=== PATIENT | male | born 1960 | race Caucasian/White ===

== ENCOUNTER 2018-10-14 14:22 | Outpatient (CLI) | payer OTHER | END 2018-10-14 14:23 | disposition critical access hospital (66) | LOC: EMS 14:22 | PROVIDERS: ATTEND Surgery | DX: M25.551 Pain in right hip (principal); W01.0XXA Fall on same level from slipping, tripping and stumbling without subsequent striking against object, initial encounter; Y92.008 Other place in unspecified non-institutional (private) residence as the place of occurrence of the external cause; Y99.0 Civilian activity done for income or pay | CPT/HCPCS: A0425; A0429 ==

== ENCOUNTER 2018-10-14 14:41 | Inpatient (IN) | payer OTHER ==
[2018-10-14] MEDS ORDERED: MORPHINE 2 MG/ML CARPUJECT IVP STA (15:09)
--- NOTE | 2018-10-14 15:12 | ED Physician Documentation ---
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 Review of Systems Ten Systems: 10 systems reviewed and negative Constitutional: denies: Fever Cardiac: denies: Chest pain / pressure Respiratory: denies: Dyspnea GI: reports: Nausea, Vomiting. denies: Abdominal Pain Musculoskeletal: reports: Extremity pain (Right hip). denies: Neck pain, Back pain Neurologic: denies: Generalized weakness, Focal weakness, Numbness, Head injury PD PAST MEDICAL HISTORY - Past Medical History Past Medical History: Yes Cardiovascular: None Respiratory: None Neuro: None Endocrine/Autoimmune: None GI: None : None HEENT: None Psych: None Musculoskeletal: None Derm: None - Past Surgical History Past Surgical History: Yes Ortho: Other - Present Medications Home Medications: Ambulatory Orders Medication Instructions Recorded Confirmed No Known Home Medications 10/14/18 10/14/18 - Allergies Allergies/Adverse Reactions: Allergies Allergy/AdvReac Type Severity Reaction Status Date / Time No Known Drug Allergies Allergy Verified 10/14/18 14:45 - Social History Does the pt smoke?: Yes Smoking Status: Current every day smoker Does the pt drink ETOH?: Yes ETOH Use: Beer Does the pt have substance abuse?: Yes Substance Use and Type: Marijuana - Immunizations Immunizations are current?: No Immunizations: TDAP >10years/unknown - POLST Patient has POLST: No PD ED PE NORMAL - Vitals Vital signs reviewed: Yes - General General: Alert and oriented X 3, No acute distress, Well developed/nourished - HEENT HEENT: Atraumatic, EOMI, Moist mucous membranes - Neck Neck: Supple, no meningeal sign, No bony TTP - Cardiac Cardiac: RRR, No murmur - Respiratory Respiratory: No respiratory distress, Clear bilaterally - Abdomen Abdomen: Normal bowel sounds, Soft, Non tender, Non distended - Back Back: No CVA TTP, No spinal TTP - Derm Derm: Normal color, Warm and dry - Extremities Extremities: No deformity, No edema, Other (Patient refusing to move right leg due to right hip pain.) - Neuro Neuro: Alert and oriented X 3, Normal speech - Psych Psych: Normal mood, Normal affect Results - Vitals Vitals: Vital Signs - 24 hr 10/14/18 14:42 Temperature 36.9 C Heart Rate 84 Respiratory 16 Rate Blood Pressure 113/76 O2 Saturation 97 Oxygen O2 Source Room air - Labs Labs: Laboratory Tests 10/14/18 10/14/18 15:20 15:20 WBC 9.3 RBC 4.18 L Hgb 13.7 L Hct 38.6 L MCV 92.2 MCH 32.8 H MCHC 35.6 RDW 12.7 Plt Count 214 MPV 7.2 L Neut # (Auto) 7.1 H Lymph # (Auto) 1.5 [place] # (Auto) 0.5 Eos # (Auto) 0.1 Baso # (Auto) 0.1 Absolute Nucleated RBC 0.00 Nucleated RBC % 0.0 Sodium 135 Potassium 3.8 Chloride 102 Carbon Dioxide 24 Anion Gap 9.0 BUN 15 Creatinine 1.0 Estimated GFR (MDRD) 77 L Glucose 91 Calcium 8.8 Total Bilirubin 0.8 AST 27 ALT 19 Alkaline Phosphatase 56 Total Protein 7.0 Albumin 4.1 Globulin 2.9 Albumin/Globulin Ratio 1.4 Lipase 25 PD MEDICAL DECISION MAKING - ED course Complexity details: reviewed results, re-evaluated patient (1626 Patient and informed of x-ray results and plan of admission. ), considered differential (Hip fracture, hip dislocation, pelvis fracture, muscle strain, contusion), d/w patient, d/w family, d/w PMD (1635 Case discussed with orthopedic carbonation tester Dr. Warren. He will come in and see the patient and write orders. 1705 Dr. Warren here at the bedside and admitted patient.) Departure - Departure Disposition: 66 [facility] DC/Xfer Clinical Impression: Fracture of hip, right, closed Qualifiers: Encounter type: initial encounter Qualified Code(s): S72.001A - Fracture of unspecified part of neck of right femur, initial encounter for closed fracture Condition: Stable
[2018-10-14 15:35] LABS: BASOPHILS # (AUTO) 0.1 10^3/uL (0.0-0.1); EOSINOPHILS # (AUTO) 0.1 10^3/uL (0.0-0.7); EOSINOPHILS % (AUTO) 1.4 %; HGB - HEMOGLOBIN 13.7 g/dL (14.0-18.0); LYMPHOCYTES # (AUTO) 1.5 10^3/uL (1.5-3.5); MEAN CORPUSCULAR HEMOGLOBIN 32.8 pg (27.0-31.0); MEAN CORPUSCULAR HGB CONC 35.6 g/dL (32.0-36.0); MEAN CORPUSCULAR VOLUME 92.2 fL (80.0-94.0); MEAN PLATELET VOLUME 7.2 fL (7.4-11.4); MONOCYTES # (AUTO) 0.5 10^3/uL (0.0-1.0); MONOCYTES % (AUTO) 5.5 %; NEUTROPHILS # (AUTO) 7.1 10^3/uL (1.5-6.6); NEUTROPHILS % (AUTO) 76.1 %; PLT - PLATELET COUNT 214 10^3/uL (130-450); RED BLOOD COUNT 4.18 10^6/uL (4.70-6.10); RED CELL DISTRIBUTION WIDTH 12.7 % (12.0-15.0); WHITE BLOOD COUNT 9.3 x10^3/uL (4.8-10.8)
[2018-10-14 15:39] LABS: ALBUMIN 4.1 g/dL (3.2-5.5); ALBUMIN/GLOBULIN RATIO 1.4 (1.0-2.2); BILIRUBIN,TOTAL 0.8 mg/dL (0.2-1.0); CALCIUM 8.8 mg/dL (8.5-10.3)
--- NOTE | 2018-10-14 16:15 | XRAY Report ---
Reason: chest pain Procedure Date: 10/14/2018 Accession Number: [id number] / [id number] Procedure: XR - Chest 1 View X-Ray CPT Code: 44563 FULL RESULT: EXAM: CHEST RADIOGRAPHY EXAM DATE: 10/14/2018 04:00 PM. CLINICAL HISTORY: Chest pain. COMPARISON: None. TECHNIQUE: 1 view. FINDINGS: Lungs/Pleura: There is mild hazy opacity in the right base. No other focal airspace opacity. No pleural effusion or pneumothorax. Mediastinum: Cardiomediastinal silhouette and pulmonary vasculature are within normal limits. Other: None. IMPRESSION: Mild hazy right basilar opacity, which may represent mild atelectasis or early infiltrate. RADIA
--- NOTE | 2018-10-14 16:17 | XRAY Report ---
Reason: fall, pain Procedure Date: 10/14/2018 Accession Number: [id number] / [id number] Procedure: XR - Hip w/Pelvis 2-3V RT CPT Code: FULL RESULT: EXAM: RIGHT HIP AND PELVIS RADIOGRAPHY EXAM DATE: 10/14/2018 04:01 PM. HISTORY: Fall, pain. COMPARISONS: None. TECHNIQUE: 1 view of the pelvis and 1 view of the hip. FINDINGS: Bones: There is a subcapital fracture of the right femoral neck. The femoral shaft is rotated with respect to the femoral head. Joints: No dislocation or subluxation present in the hips. Alignment of the sacroiliac joints and symphysis pubis is within normal limits. Soft Tissues: Unremarkable. IMPRESSION: Subcapital fracture of the right femoral neck with rotation of the femoral shaft. RADIA
[2018-10-14] MEDS ORDERED: BUPIVACAINE 0.5%-EPI 1:200000 PF 10 ML VIAL SUBQ STA (16:59)
[2018-10-14] MEDS ORDERED: MORPHINE 10 MG/ML VIAL IVP STA (17:05)
[2018-10-14] MEDS ORDERED: LIDOCAINE 2% 10 ML MDV ONE (17:10)
[2018-10-14] MEDS ORDERED: SODIUM CHLORIDE FLUSH 0.9% 10 ML SYRINGE IVP PRN (17:12)
[2018-10-14] MEDS ORDERED: HYDROmorphone 1 MG/ML CARPUJECT IVP PRN (17:12)
--- NOTE | 2018-10-14 17:54 | HISTORY & PHYSICAL EXAMINATION ---
HPI - Admitted From Admitted from: ED - History Obtained From Records Reviewed: RN notes reviewed History obtained from: Patient Exam limitations: No limitations - History of Present Illness Pain/Problem Location Description: right hip pain after GLF onto concrete on right side Severity at the worst: reports: Severe Pain Quality: reports: Sharp Context-Pain started w/: reports: Movement Timing: reports: Abrupt onset Duration: reports: Hours: (5hrs ago) Improved with: reports: Nothing Worsened by: reports: Movement PMH/PSH - Past Medical History Cardiovascular: positive: None Respiratory: positive: None Neuro: positive: None Endocrine/Autoimmune: positive: None GI: positive: None : positive: None HEENT: positive: None Psych: positive: None Musculoskeletal: positive: None, Other (History of bilateral elbow and wrist injuries in fall 4 yrs ago. Left radial head ORIF) Derm: positive: None MRSA Hx?: No - Past Surgical History Ortho: positive: Other (left elbow radial head orif) Social & Family Hx - Living Situation Living Situation: With spouse/s.o. - Social History Does the pt smoke?: Yes Smoking Status: Current every day smoker Does the pt drink ETOH?: Yes ETOH Use: Beer Does the pt have substance abuse?: Yes Substance Use and Type: Marijuana - POLST Patient has POLST: No Meds/Allgy - Home Medications Home Medications: Ambulatory Orders Medication Instructions Recorded Confirmed No Known Home Medications 10/14/18 10/14/18 - Allergies Allergies/Adverse Reactions: Allergies Allergy/AdvReac Type Severity Reaction Status Date / Time No Known Drug Allergies Allergy Verified 10/14/18 14:45 Review of Systems - Musculoskeletal Musculoskeletal: reports: Joint pain - All Other Systems All Other Systems: reports: Reviewed and negative Exam - Vital Signs Reviewed Vital Signs: Yes Vital Signs: Vital Signs x48h Temp Pulse Resp BP Pulse Ox 10/14/18 14:42 36.9 C 84 16 113/76 97 - Physical Exam General Appearance: positive: Mild distress Eyes Bilateral: positive: Normal inspection ENT: positive: ENT inspection nml Neck: positive: Nml inspection Respiratory: positive: Chest non-tender Skin: positive: Color nml, No rash Extremities: positive: Joint swelling, Other (shortened ext. rotated right LE. Pain with motion. N/V normal. No abrasion on skin) Neurologic/Psychiatric: positive: Oriented x3, CN's nml (2-12), Motor nml, Sensation nml Results - Lab Results Lab results reviewed: Yes Fish Bones: 10/14/18 15:20 10/14/18 15:20 Other Lab Results: Lab Results x24hrs 10/14/18 10/14/18 Range/Units 15:20 15:20 WBC 9.3 (4.8-10.8) x10^3/uL RBC 4.18 L (4.70-6.10) 10^6/uL Hgb 13.7 L (14.0-18.0) g/dL Hct 38.6 L (42.0-52.0) % MCV 92.2 (80.0-94.0) fL MCH 32.8 H (27.0-31.0) pg MCHC 35.6 (32.0-36.0) g/dL RDW 12.7 (12.0-15.0) % Plt Count 214 (130-450) 10^3/uL MPV 7.2 L (7.4-11.4) fL Neut # (Auto) 7.1 H (1.5-6.6) 10^3/uL Lymph # (Auto) 1.5 (1.5-3.5) 10^3/uL [place] # (Auto) 0.5 (0.0-1.0) 10^3/uL Eos # (Auto) 0.1 (0.0-0.7) 10^3/uL Baso # (Auto) 0.1 (0.0-0.1) 10^3/uL Absolute Nucleated RBC 0.00 x10^3/uL Nucleated RBC % 0.0 /100WBC Sodium 135 (135-145) mmol/L Potassium 3.8 (3.5-5.0) mmol/L Chloride 102 (101-111) mmol/L Carbon Dioxide 24 (21-32) mmol/L Anion Gap 9.0 (6-13) BUN 15 (6-20) mg/dL Creatinine 1.0 (0.6-1.2) mg/dL Estimated GFR (MDRD) 77 L (>89) Glucose 91 (70-100) mg/dL Calcium 8.8 (8.5-10.3) mg/dL Total Bilirubin 0.8 (0.2-1.0) mg/dL AST 27 (10-42) IU/L ALT 19 (10-60) IU/L Alkaline Phosphatase 56 (42-121) IU/L Total Protein 7.0 (6.7-8.2) g/dL Albumin 4.1 (3.2-5.5) g/dL Globulin 2.9 (2.1-4.2) g/dL Albumin/Globulin Ratio 1.4 (1.0-2.2) Lipase 25 (22-51) U/L - Diagnostic Imaging Results Diagnostic Imaging Results: positive: Read independently (displaced and somewhat comminuted right femoral neck fracture. 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 I expect him to remain inpatient less than 96hrs. Pt was given a hematoma block in the ER by me utitlizing 10cc of .25% Marcaine and 1% lidocaine intraarticular. He will be NPO after midnight.
[2018-10-14] MEDS: LACTATED RINGERS 1,000 ML IV SCH (19:43)
[2018-10-15] MEDS: SODIUM CHLORIDE FLUSH 0.9% 10 ML SYRINGE IVP SCH ×3 (01:07→18:02)
[2018-10-15] MEDS: LACTATED RINGERS 1,000 ML IV SCH ×3 (03:08→20:26)
[2018-10-15] MEDS ORDERED: BUPIVACAINE 0.5%-EPI 1:200000 PF 30 ML VIAL ONE (08:34)
--- NOTE | 2018-10-15 08:45 | ANESTHESIA ---
Pre-Anesthesia VS, & Labs - Diagnosis Right femoral head fracture - Procedure Right hip ORIF Vital Signs: Temp Pulse Resp BP Pulse Ox 37.1 C 65 16 135/73 H 97 10/15/18 07:03 10/15/18 07:03 10/15/18 07:03 10/15/18 07:03 10/15/18 07:03 Height 5 ft 11 in Weight (kg) 74.8 kg Body Mass Index 23.0 - Lab Results Current Lab Results: Laboratory Tests 10/14/18 17:45: Blood Type O POSITIVE, Antibody Screen NEGATIVE 10/14/18 15:20: Sodium 135, Potassium 3.8, Chloride 102, Carbon Dioxide 24, Anion Gap 9.0, BUN 15, Creatinine 1.0, Estimated GFR (MDRD) 77 L, Glucose 91, Calcium 8.8, Total Bilirubin 0.8, AST 27, ALT 19, Alkaline Phosphatase 56, Total Protein 7.0, Albumin 4.1, Globulin 2.9, Albumin/Globulin Ratio 1.4, Lipase 25 10/14/18 15:20: WBC 9.3, RBC 4.18 L, Hgb 13.7 L, Hct 38.6 L, MCV 92.2, MCH 32.8 H, MCHC 35.6, RDW 12.7, Plt Count 214, MPV 7.2 L, Neut # (Auto) 7.1 H, Lymph # (Auto) 1.5, [place] # (Auto) 0.5, Eos # (Auto) 0.1, Baso # (Auto) 0.1, Absolute Nu cleated RBC 0.00, Nucleated RBC % 0.0 Fish Bones: 10/14/18 15:20 10/14/18 15:20 Home Medications and Allergies Home Medications: Ambulatory Orders No Known Home Medications 10/14/18 Active Medications Hydromorphone HCl (Dilaudid Inj Carp) 1 mg IVP Q2HR PRN PRN Reason: PAIN Lactated Ringer's (Lr) 1,000 mls @ 125 mls/hr IV .Q8H MIRZA Last Admin: 10/15/18 03:08 Dose: 125 mls/hr Ketorolac Tromethamine (Toradol Inj (30mg)) 30 mg IVP Q8HR PRN PRN Reason: PAIN Stop: 10/19/18 17:11 Sodium Chloride (Normal Saline Flush 0.9%) 10 ml IVP 0100,0900,1700 MIRZA Last Admin: 10/15/18 07:45 Dose: Not Given Sodium Chloride (Normal Saline Flush 0.9%) 10 ml IVP PRN PRN PRN Reason: NEEDED PER PROVIDER ORDERS No Known Home Medications 10/14/18 Allergies/Adverse Reactions: Allergies Allergy/AdvReac Type Severity Reaction Status Date / Time No Known Drug Allergies Allergy Verified 10/14/18 14:45 Anes History & Medical History - Anesthetic History Anesthesia Complications: reports: No previous complications Family history of Anesthesia Complications: Denies Family history of Malignant Hyperthermia: Denies - Medical History Cardiovascular: reports: None Pulmonary: reports: None Gastrointestinal: reports: None Urinary: reports: None Neuro: reports: None Musculoskeletal: reports: None, Other (History of bilateral elbow and wrist injuries in fall 4 yrs ago. Left radial head ORIF) Endocrine/Autoimmune: reports: None Blood Disorders: reports: None Skin: reports: None Smoking Status: Current every day smoker Psychosocial: reports: No issues indicated - Surgical History Orthopedic: Other (left elbow radial head orif) Exam General: Alert, Oriented x3 Dental: Dentures full Upper, Dentures full Lower Mouth Opening: Greater than 4 Fingerbreadths Neck Mobility: Normal Mallampati classification: I Thyromental Distance: greater than 6 cm Respiratory: Lungs clear Cardiovascular: Regular rate, No murmurs Neurological: Normal speech Mental/Cognitive Status: Alert/Oriented X3 Cognitive Status: Within normal limits Plan Anesthesia Type: General Consent for Procedure(s) Verified and Reviewed: Yes Code Status: Attempt Resuscitation ASA classification: 2-Mild systemic disease Is this case an emergency?: Yes
[2018-10-15] MEDS ORDERED: BUPIVACAINE 0.5%-EPI 1:200000 PF 10 ML VIAL SUBQ ONE (09:55)
[2018-10-15] MEDS ORDERED: LACTATED RINGERS 1,000 ML IV ONE (09:56)
--- NOTE | 2018-10-15 11:00 | OPERATIVE REPORT ---
Operative Report - General Admit Date: 10/14/18 Procedure Date: 10/15/18 Planned Procedure: right bipolar hip arthroplasty Pre-Op Diagnosis: right femoral neck fracture Procedure Performed: Right bipolar hip arthroplasty Post Op Diagnosis: same - Procedure Note Primary Surgeon: chester Anesthesia Technique: General ET tube Estimated Blood Loss (mL): 100 Complications: none - Other Other Information/Narrative: Pt noted at surgery prep to have chronic right infrapatellar bursitis with tiny punctate opening from which sero-purulent fluid could be expressed. Culture taken.
[2018-10-15] MEDS: ASPIRIN 325 MG TABLET PO SCH (11:44)
--- NOTE | 2018-10-15 13:33 | XRAY Report ---
Reason: post op Procedure Date: 10/15/2018 Accession Number: [id number] / [id number] Procedure: XR - Hip w/Pelvis 2-3V RT CPT Code: FULL RESULT: EXAM: RIGHT HIP AND PELVIS RADIOGRAPHY. EXAM DATE: 10/15/2018 11:26 AM. HISTORY: Post-operative. COMPARISONS: Hip with pelvis 2-3 views right 10/14/2018 3:41 PM. TECHNIQUE: 3 views pelvis and right hip. FINDINGS: Bones: Interval fracture repair with a right hip hemiarthroplasty in the expected position. No evidence of fracture. Alignment normal. Joints: Right hip hemiarthroplasty in normal alignment. Soft Tissues: Subcutaneous emphysema consistent with recent surgery. IMPRESSION: 1. Interval right hip hemiarthroplasty for right femur fracture repair in the expected position. No fracture. RADIA
--- NOTE | 2018-10-15 14:30 | OPERATIVE REPORT ---
DATE OF SERVICE: 10/14/2018 Physician: Chacorta Warren MD PREOPERATIVE DIAGNOSIS: Displaced right femoral neck fracture. POSTOPERATIVE DIAGNOSIS: Displaced right femoral neck fracture. PROCEDURE PERFORMED: Bipolar right hip arthroplasty. ANESTHESIA: General. ANESTHESIOLOGIST: Urvashi____ [TIME: 00:31]. INDICATIONS FOR SURGERY: The patient is a 58-year-old male who suffered a ground level fall onto the point of his hip on concrete yesterday, causing a displaced and slightly comminuted fracture of his right femoral neck. The patient was admitted to the hospital, unable to ambulate, and in quite a bit of pain. The patient was admitted, and surgery was recommended for bipolar hip arthroplasty. PRIOR MEDICAL HISTORY: Documented in the record. FINDINGS AT SURGERY: The patient's fracture was displaced and the fracture site did show comminution. The patient's acetabulum was pristine without degenerative change. DESCRIPTION OF OPERATIVE PROCEDURE: The patient was taken to the operating room and placed supine on the OR table and given a general anesthetic, after which he was positioned left lateral decubitus, supported by a post-device with padding, and his groin was isolated by plastic drapes to allow full exposure of his right lower extremity, which was then prepped and draped in standard fashion. A surgical timeout was undertaken, after which a surgery approach was made for a posterior approach to the hip. An incision of about 7 inches in length, taken through skin and subcutaneous tissue, dissecting down to the fascial layer, which was divided in line with the incision. The short rotators were taken down and the posterior part of the hip and labrum preserved the capsule entered. This allowed exposure of the fracture. Some of the fragmented bone was retrieved with a rongeur and the femur was displaced anteriorly, thus to expose the fractured femoral head, which was removed with a corkscrew and measured at 54 mm. The hip was inspected and irrigated thoroughly of small fragmented debris. A femoral neck osteotomy was made and a canal finder was placed down the femur, followed by serial broaching up to a size 14 Taperloc stem trial, upon which a standard neck and a 54 mm monopolar head was applied for trial reduction, and when reduced, restored limb lengths, soft tissue tension and length. Stability was excellent through all planes. The trial implants were then removed, and the area irrigated and followed by implantation of [employer] size 14 standard offset Taperloc stem, which seated well, followed by an application of a 28 mm head inserted into a bipolar 54 mm shell. This was reduced into the acetabulum, once again, taken through test for length and stability and range of motion and impingement, and all were satisfactory. The wound was then irrigated and a soft tissue closure undertaken with FiberWire closure of short rotators, followed by #2 FiberWire running closure of the fascia, followed by subcutaneous closure with 2-0 Vicryl interrupted and 2-0 Monocryl closure of skin. A sterile dressing was applied. The patient was then repositioned supine on the table, and then transferred to a gurney to be taken to the recovery room in stable condition. The estimated blood loss for the procedure was less than 100 mL. There were no complications. It should be noted that in the operating room, it was identified that the patient had a right infrapatellar, chronic, noninflamed bursitis with a tiny pinpoint hole, and from this hole, a small amount of serous fluid was seen and cultured. This did not have surrounding cellulitis or give evidence of any ongoing active infection other than the slight serous drainage, and it was elected not to do anything further with this at this time. TD: 10/15/2018 11:43 KRISTY
[2018-10-15] MEDS: ceFAZolin 2 GM/50 ML 2 GM/50 ML BAG IV SCH (17:58)
[2018-10-15] MEDS: KETOROLAC 30 MG/ML VIAL IVP PRN (20:26)
[2018-10-16] MEDS: ceFAZolin 2 GM/50 ML 2 GM/50 ML BAG IV SCH ×2 (00:52→08:28)
[2018-10-16] MEDS: SODIUM CHLORIDE FLUSH 0.9% 10 ML SYRINGE IVP SCH ×2 (02:25→07:25)
[2018-10-16] MEDS: LACTATED RINGERS 1,000 ML IV SCH (04:49)
[2018-10-16 05:44] LABS: BASOPHILS # (AUTO) 0.1 10^3/uL (0.0-0.1); BASOPHILS % (AUTO) 1.4 %; EOSINOPHILS # (AUTO) 0.1 10^3/uL (0.0-0.7); EOSINOPHILS % (AUTO) 0.8 %; HGB - HEMOGLOBIN 12.4 g/dL (14.0-18.0); LYMPHOCYTES # (AUTO) 1.2 10^3/uL (1.5-3.5); LYMPHOCYTES % (AUTO) 10.7 %; MEAN CORPUSCULAR HEMOGLOBIN 32.3 pg (27.0-31.0); MEAN CORPUSCULAR HGB CONC 33.9 g/dL (32.0-36.0); MEAN CORPUSCULAR VOLUME 95.3 fL (80.0-94.0); MEAN PLATELET VOLUME 7.2 fL (7.4-11.4); MONOCYTES % (AUTO) 9.7 %; NEUTROPHILS # (AUTO) 8.3 10^3/uL (1.5-6.6); NEUTROPHILS % (AUTO) 77.4 %; PLT - PLATELET COUNT 169 10^3/uL (130-450); RED BLOOD COUNT 3.85 10^6/uL (4.70-6.10); RED CELL DISTRIBUTION WIDTH 12.7 % (12.0-15.0); WHITE BLOOD COUNT 10.8 x10^3/uL (4.8-10.8)
[2018-10-16] MEDS: KETOROLAC 30 MG/ML VIAL IVP PRN (06:52)
--- NOTE | 2018-10-16 07:56 | PROVIDER PROGRESS NOTE ---
Subjective - General Admit Date: 10/14/18 Procedure Date: 10/15/18 Post Op Days: 1 - Review of Systems All Other Systems: positive: Reviewed and negative Objective - Patient Data Reviewed Vital Signs: Yes Vital Signs: Vital Signs x48h Temp Pulse Resp BP Pulse Ox 10/16/18 05:00 37.2 C 68 18 136/71 H 95 10/16/18 01:00 37 C 61 20 124/68 97 Weight: Weight 10/14/18 10/15/18 10/16/18 23:59 23:59 23:59 Weight (kg) 74.8 kg Intake & Output: Intake and Output Totals x24h 10/14/18 10/15/18 10/16/18 23:59 23:59 23:59 Intake Total 687 3667.083 1050 Output Total 300 2050 400 Balance 387 1617.083 650 - Lab Results Lab Results: 10/16/18 05:24 10/14/18 15:20 Other Lab Results: Lab Results x24hrs 10/16/18 Range/Units 05:24 WBC 10.8 (4.8-10.8) x10^3/uL RBC 3.85 L (4.70-6.10) 10^6/uL Hgb 12.4 L (14.0-18.0) g/dL Hct 36.6 L (42.0-52.0) % MCV 95.3 H (80.0-94.0) fL MCH 32.3 H (27.0-31.0) pg MCHC 33.9 (32.0-36.0) g/dL RDW 12.7 (12.0-15.0) % Plt Count 169 (130-450) 10^3/uL MPV 7.2 L (7.4-11.4) fL Neut # (Auto) 8.3 H (1.5-6.6) 10^3/uL Lymph # (Auto) 1.2 L (1.5-3.5) 10^3/uL [place] # (Auto) 1.0 (0.0-1.0) 10^3/uL Eos # (Auto) 0.1 (0.0-0.7) 10^3/uL Baso # (Auto) 0.1 (0.0-0.1) 10^3/uL Absolute Nucleated RBC 0.01 x10^3/uL Nucleated RBC % 0.1 /100WBC - Imaging Results Radiology Imaging: positive: EMP read indepedently - Current Medications Current Medications: Current Medications Generic Name Dose Route Start Last Admin Trade Name Freq PRN Reason Stop Dose Admin Aspirin 325 mg 10/15/18 12:00 10/15/18 11:44 Erwin PO 325 mg DAILYWM MIRZA Administration Cefazolin Sodium/Dextrose 2 gm in 50 mls @ 100 mls/hr 10/15/18 17:00 10/16/18 01:25 Ancef 2 Gm/50 Ml IV 10/16/18 09:00 Infused Q8H MIRZA Infusion Ketorolac Tromethamine 30 mg 10/14/18 17:12 10/16/18 06:52 Toradol Inj (30mg) IVP 10/19/18 17:11 30 mg Q8HR PRN Administration PAIN Sodium Chloride 10 ml 10/15/18 01:00 10/16/18 07:25 Normal Saline Flush 0.9% IVP Not Given 0100,0900,1700 MIRZA Sodium Chloride 10 ml 10/14/18 17:12 10/16/18 06:52 Normal Saline Flush 0.9% IVP 10 ml PRN PRN Administration NEEDED PER PROVIDER ORDERS
[2018-10-16] MEDS: ASPIRIN 325 MG TABLET PO SCH (08:27)
--- NOTE | 2018-10-16 09:33 | Discharge Plan ---
Discharge Plan Disposition: Home, Self Care Condition: Good Prescriptions: Hydrocodone/Acetaminophen [Hydrocodone-Acetamin 5-325 mg] 1 each PO Q4HR PRN 7 Days #30 tablet PRN Reason: Pain RX: Aspirin [Erwin] 325 mg PO DAILYWM #30 tablet RX: Sulfamethox/Trimeth 800/160 [Bactrim Ds] 1 each PO BID #14 tablet Diet: Regular Activity Restrictions: Wt Bearing as Tolerated (with crutches or walker) Shower Restrictions: Yes (cover wound) Driving Restrictions: Yes (no driving) Assistance Devices: Crutches Weight Bearing: Full Weight Additional Instructions or Follow Up instructions: Dr. Warren at [facility] in 7-10 days after surgery No Smoking: If you smoke, Please STOP! Call for help. Follow-up with: Chacorta Warren MD [Provider Admit Priv/Credential] -
[2018-10-16] MEDS ORDERED: ONDANSETRON 4 MG/2 ML VIAL IVP ONE (09:50)
[2018-10-16] MEDS ORDERED: ROCURONIUM 50 MG/5 ML VIAL IVP ONE (09:50)
[2018-10-16] MEDS ORDERED: PROPOFOL 200 MG/20 ML VIAL IVP ONE (09:50)
[2018-10-16] MEDS ORDERED: TRANEXAMIC ACID 1,000 MG/10 ML VIAL IV ONE (09:50)
[2018-10-16] MEDS ORDERED: DEXAMETHASONE 4 MG/ML VIAL IVP ONE (09:50)
[2018-10-16] MEDS ORDERED: LIDOCAINE-MPF 2% 5 ML VIAL IM ONE (09:50)
[2018-10-16] MEDS ORDERED: MIDAZOLAM 2 MG/2 ML VIAL IVP ONE (09:50)
[2018-10-16] MEDS ORDERED: fentaNYL 250 MCG/5 ML VIAL IVP ONE (09:50)
[2018-10-16] MEDS ORDERED: ACETAMINOPHEN 1,000 MG/100 ML 100 ML IV ONE (09:50)
[2018-10-16] MEDS ORDERED: ceFAZolin 2 GM/50 ML BAG IV ONE (09:50)
[2018-10-16] MEDS ORDERED: KETOROLAC 30 MG/ML VIAL IVP ONE (09:50)
[2018-10-16 13:23] VITALS: BP 138/77
--- NOTE | 2018-10-25 17:40 | DISCHARGE SUMMARY ---
Physician: Chacorta Warren MD DATE OF ADMISSION: 10/14/2018 DATE OF DISCHARGE: 10/16/2018 ADMISSION DIAGNOSIS: Right femoral neck fracture, displaced. OPERATIVE PROCEDURE: Right hip bipolar hip arthroplasty performed on 10/15/2018. REASON FOR ADMISSION: The patient is a 58-year-old male who suffered a fall, injuring his hip and wa s admitted through the emergency room with hip pain and inability to ambulate. The patient's prior m edical history is documented in the medical record in the admission H and P. HOSPITAL COURSE: The patient was admitted and he was prepared for surgery on 10/15/2018, at which point he underwent a right hip hemiarthroplasty, bipolar. He tolerated the surgery well. In postoperative period the patient was admitted to the medical surgical floor began ambulation with a walker and was able to handle pain with oral pain pills and advanced very rapidly to the point that at discharge on 10/16/2018 he was ready to return home with his usual medications to be restarted and to use aspirin daily and to use Tylenol for pain. The patient was comfortable with that program and was able to have very good pain control on that regimen of medications. The patient was to follow up in the Orthopedic Clinic within 10-14 days and to remain on use of a walker. TD: 10/25/2018 11:47
== END 2018-10-16 14:10 | disposition home or self-care (01) | DRG 470 ==
LOC: ED 14:41 → MS2 17:12
PROVIDERS: ADMIT Orthopaedic Surgery; ATTEND Orthopaedic Surgery
PROC: 0SRR01Z Replacement of Right Hip Joint, Femoral Surface with Metal Synthetic Substitute, Open Approach (ICD-10-PCS; principal; 2018-10-15 09:00)
DX: S72.011A Unspecified intracapsular fracture of right femur, initial encounter for closed fracture (principal); W18.01XA Striking against sports equipment with subsequent fall, initial encounter; Y93.H9 Activity, other involving exterior property and land maintenance, building and construction; Y99.0 Civilian activity done for income or pay; M70.51 Other bursitis of knee, right knee; F17.200 Nicotine dependence, unspecified, uncomplicated
CPT/HCPCS: 36415; 71045; 80053; 83690; 85025; 86850; 86900; 86901; 87070; 87205; 96374; 96376; 99283; 99285

== ENCOUNTER 2022-08-12 08:48 | Outpatient (CLI) | payer MEDICAID ==
[2022-08-12 14:36] LABS: BASOPHILS # (AUTO) 0.1 10^3/uL (0.0-0.1); BASOPHILS % (AUTO) 1.3 %; EOSINOPHILS # (AUTO) 0.2 10^3/uL (0.0-0.7); EOSINOPHILS % (AUTO) 2.8 %; HCT - HEMATOCRIT 42.1 % (42.0-52.0); HGB - HEMOGLOBIN 14.1 g/dL (14.0-18.0); LYMPHOCYTES # (AUTO) 1.1 10^3/uL (1.5-3.5); LYMPHOCYTES % (AUTO) 20.8 %; MEAN CORPUSCULAR HEMOGLOBIN 31.7 pg (27.0-31.0); MEAN CORPUSCULAR HGB CONC 33.5 g/dL (32.0-36.0); MEAN CORPUSCULAR VOLUME 94.6 fL (80.0-94.0); MEAN PLATELET VOLUME 9.4 fL (7.4-11.4); MONOCYTES # (AUTO) 0.6 10^3/uL (0.0-1.0); MONOCYTES % (AUTO) 10.8 %; NEUTROPHILS # (AUTO) 3.4 10^3/uL (1.5-6.6); NEUTROPHILS % (AUTO) 63.5 %; PLT - PLATELET COUNT 258 10^3/uL (130-450); RED BLOOD COUNT 4.45 10^6/uL (4.70-6.10); RED CELL DISTRIBUTION WIDTH 12.8 % (12.0-15.0); WHITE BLOOD COUNT 5.3 x10^3/uL (4.8-10.8)
[2022-08-12 14:50] LABS: ALBUMIN 4.3 g/dL (3.2-5.5); ALBUMIN/GLOBULIN RATIO 1.6 (1.0-2.2); ALKALINE PHOSPHATASE 65 IU/L (42-121); ALT ALANINE AMINOTRANSFERASE 20 IU/L (10-60); AST ASPARTATE AMINOTRANSFERASE 37 IU/L (10-42); BILIRUBIN,TOTAL 0.5 mg/dL (0.2-1.0); BUN - BLOOD UREA NITROGEN 18 mg/dL (6-20); CALCIUM 9.3 mg/dL (8.5-10.3); CARBON DIOXIDE - CO2 29 mmol/L (21-32); CHLORIDE 105 mmol/L (101-111); CHOL/HDL RATIO 3.1 (<5.0); CHOLESTEROL 169 mg/dL; CREATININE 1.1 mg/dL (0.6-1.2); GFR - MDRD 68 (>89); GLUCOSE 121 mg/dL (70-100); HDL CHOLESTEROL 54 mg/dL; LDL CHOLESTEROL,CALCULATED 107 mg/dL; POTASSIUM 4.5 mmol/L (3.5-5.0); SODIUM 140 mmol/L (135-145); TRIGLYCERIDES 41 mg/dL; VLDL CHOLESTEROL 8 mg/dL
[2022-08-13 03:08] LABS: HCV AB <0.1 s/co ratio (0.0-0.9)
== END 2022-08-12 08:49 | disposition home or self-care (01) ==
LOC: LAB.S 08:48
PROVIDERS: ATTEND Family Medicine
DX: M25.469 Effusion, unspecified knee (principal); Z12.5 Encounter for screening for malignant neoplasm of prostate; Z13.220 Encounter for screening for lipoid disorders; Z11.59 Encounter for screening for other viral diseases
CPT/HCPCS: 36415; 80053; 80061; 83721; 84153; 85025; 86803